=== PATIENT | female | born 1960 | race Caucasian/White ===

== ENCOUNTER 2017-12-15 09:15 | Emergency (ER) | payer OTHER ==
[~2017-12-15] VITALS: Ht 165.1 cm; Wt 64.0 kg
[2017-12-15] MEDS ORDERED: SODIUM CHLORIDE 0.9% 1000ML BAG (SEPSIS BOLUS) IV ONE (09:30)
[2017-12-15] MEDS ORDERED: MAGNESIUM 2 G PREMIX 50 ML IV STA (09:30)
[2017-12-15] MEDS ORDERED: METHYLPREDNISOLONE SOD SUCC 125 MG/2 ML VIAL IV STA (09:30)
[2017-12-15] MEDS ORDERED: IPRATROPIUM BROMIDE (0.02%) 0.5MG/2.5ML NEB HHN STA (09:30)
[2017-12-15] MEDS ORDERED: ALBUTEROL (0.083%) 2.5MG/3ML NEB HHN STA (09:30)
[2017-12-15] MEDS ORDERED: MAGNESIUM 1 G PREMIX 200 ML IV ONE (09:46)
[2017-12-15 10:04] LABS: BASOPHILS % 0.7 % (0.0-2.0); HEMATOCRIT. 38.8 % (36.0-48.0); HEMOGLOBIN. 12.8 g/dL (12.0-16.0); LYMPHOCYTES % 30.4 % (20.0-50.0); MEAN CORPUSCULAR VOLUME 88.3 fL (81.0-99.0); MEAN PLATELET VOLUME 7.6 fl (7.4-10.4); MONOCYTES % 7.1 % (2.0-8.0); NEUTROPHILS % 55.8 % (40.0-76.0); PLATELET 337 x1000/uL (130-400); RED CELL DISTRIBUTION WIDTH 13.9 % (11.6-14.6)
[2017-12-15 10:12] LABS: INR 0.9; PROTHROMBIN TIME 9.5 sec (9.4-11.6)
[2017-12-15 10:14] LABS: CHLORIDE 107 mEq/L (98-107)
[2017-12-15 10:56] LABS: BG BASE EXCESS -3.9 mmol/L (-2.0-2.0); BG BILEVEL POS AIRWAY PRESSURE 15/5; BG CARBOXYHEMOGLOBIN 0.3 % (0.5-1.5); BG DEOXYHEMOGLOBIN 0.7 % (0.0-5.0); BG FRACTION INSPIRED OXYGEN 40; BG HCO3 ACT 17.5 mmol/L (22.0-26.0); BG METHEMOGLOBIN 0.1 % (0.0-1.5); BG OXYGEN SATURATION 99.3 % (92.0-98.5); BG OXYHEMOGLOBIN 98.9 % (94.0-97.0); BG PH 7.498 (7.350-7.450); BG PO2 259.1 mmHg (75.0-100.0); BG SAMPLE SITE RIGHT BRACHIAL; BG TOTAL HEMOGLOBIN 12.9 g/dL (12.0-18.0); BG VENT MODE MASK - BIPAP; BG VENT RATE 18 set
[2017-12-15] MEDS ORDERED: LEVOFLOXACIN 750MG PREMIX 150 ML IV ONE (11:00)
[2017-12-15] MEDS ORDERED: KCL 10MEQ/50ML PREMIX 50 ML IV ONE (11:00)
[2017-12-15 11:01] LABS: CLARITY URINE CLEAR (CLEAR); COLOR URINE YELLOW (YELLOW); KETONES URINE NEGATIVE (NEGATIVE); LEUKOCYTE ESTERASE URINE NEGATIVE (NEGATIVE); NITRITE URINE NEGATIVE (NEGATIVE); OCCULT BLOOD URINE NEGATIVE (NEGATIVE); PH URINE 7.5 (4.5-8.0); PROTEIN URINE NEGATIVE (NEGATIVE); SPECIFIC GRAVITY URINE 1.003 (1.005-1.030); UROBILINOGEN URINE 0.2 E.U./dL (0.2-1.0)
[2017-12-15] MEDS ORDERED: DOCUSATE SODIUM 100MG CAPSULE PO PRN (12:15)
[2017-12-15] MEDS ORDERED: NITROGLYCERIN 0.4MG TABLET SL SL PRN (12:15)
[2017-12-15] MEDS ORDERED: CLONIDINE 0.1MG TABLET PO PRN (12:15)
[2017-12-15] MEDS ORDERED: ZOLPIDEM TARTRATE 5MG TABLET PO PRN (12:15)
[2017-12-15] MEDS ORDERED: GUAIFENESIN 200MG/10ML SUGAR FREE UDC PO PRN (12:15)
[2017-12-15] MEDS ORDERED: IPRATROPIUM/ALBUTEROL 0.5-3(2.5)MG/3ML NEB INH PRN (12:15)
[2017-12-15] MEDS ORDERED: MAGNESIUM/ALUMINUM HYDROXIDE/SIMETHICONE 30ML UDC PO PRN (12:15)
[2017-12-15] MEDS ORDERED: DIPHENHYDRAMINE 50MG/ML VIAL IV PRN (12:15)
[2017-12-15] MEDS ORDERED: POTASSIUM CHLORIDE 20MEQ TABLET SR PO ONE (12:15)
[2017-12-15] MEDS ORDERED: GUAIFENESIN/DM 600MG/30MG ER TAB 12HR PO SCH (12:15)
[2017-12-15] MEDS ORDERED: IPRATROPIUM/ALBUTEROL 0.5-3(2.5)MG/3ML NEB HHN SCH (12:15)
[2017-12-15] MEDS ORDERED: LEVOFLOXACIN 500MG PREMIX 100 ML IV SCH (12:15)
[2017-12-15] MEDS ORDERED: KETOROLAC 15MG/ML VIAL IV PRN (12:15)
[2017-12-15] MEDS ORDERED: ENOXAPARIN 40MG/0.4ML SYR SUBCUT SCH (12:15)
[2017-12-15] MEDS ORDERED: LORAZEPAM 0.5MG TABLET PO PRN (12:15)
[2017-12-15] MEDS ORDERED: ONDANSETRON HCL 4MG/2ML VIAL IV PRN (12:15)
[2017-12-15] MEDS ORDERED: NA PHOS,M-B/NA PHOS,DI-BA ENEMA 118ML PR PRN (12:15)
[2017-12-15] MEDS ORDERED: ACETAMINOPHEN 325MG TABLET PO PRN (12:15)
[2017-12-15] MEDS ORDERED: PREDNISONE 20MG TABLET PO ONE (12:30)
[2017-12-15 12:59] VITALS: BP 144/83
[2017-12-15] MEDS ORDERED: METHYLPREDNISOLONE SOD SUCC 125 MG/2 ML VIAL IV SCH (14:00)
[2017-12-15] MEDS ORDERED: DILTIAZEM HCL 60MG TABLET PO SCH (18:00)
[2017-12-15] MEDS ORDERED: FAMOTIDINE 20MG TABLET PO SCH (21:00)
[2017-12-16] MEDS ORDERED: ASPIRIN 325MG EC TABLET PO SCH (09:00)
[2017-12-16] MEDS ORDERED: CEFTRIAXONE 1 G PREMIX 50 ML IV SCH (09:00)
== END 2017-12-15 13:25 | disposition left against medical advice (07) ==
LOC: ER 09:15 → EDSEX 09:15 → EDBEDREQ 11:06 → EDBEDREQTM 11:06 → ER 13:25 → CANBEDREQ 14:07
DX: J96.00 Acute respiratory failure, unspecified whether with hypoxia or hypercapnia (principal); J45.901 Unspecified asthma with (acute) exacerbation; E87.6 Hypokalemia; E87.2 Acidosis; Z79.899 Other long term (current) drug therapy
CPT/HCPCS: 36415; 36600; 71045; 80053; 80061; 81003; 82375; 82805; 83036; 83605; 83690; 83880; 84484; 85025; 85610; 85730; 87040; 87086; 93005; 94640; 94660; 96365; 96375; 99291; J2930; J3475; J7030; J7040; J7611; Z7610